=== PATIENT | male | born 1970 | race Caucasian/White ===

== ENCOUNTER 2024-10-07 19:49 | Emergency (ER) | payer OTHER, SELFPAY ==
[2024-10-07] MEDS ORDERED: HYDROcodone/Acetaminophen 10/325 mg Tablet ONE (20:19)
[2024-10-07] MEDS ORDERED: Erythromycin Base 0.5% Ophth Oint 3.5 gm Tube ONE (20:59)
== END 2024-10-07 21:25 | disposition home or self-care (01) ==
LOC: BURERS 19:49
DX: T15.02XA Foreign body in cornea, left eye, initial encounter (principal); H16.002 Unspecified corneal ulcer, left eye
CPT/HCPCS: 65220